=== PATIENT | female | born 1975 | race Caucasian/White ===

== ENCOUNTER 2017-11-30 12:41 | Emergency (ER) | payer MEDICAID ==
[2017-11-30 12:42] VITALS: BMI 23.8
[2017-11-30 12:55] VITALS: RESP 18; TEMP 99.2; O2SAT 99
--- NOTE | 2017-11-30 13:14 | ED PDOC ---
Arrival/HPI - General Chief Complaint: Back Pain Time Seen by Provider: 11/30/17 12:46 Historian: Patient, Spouse EM Caveat: Language Barrier (Thai speaking only) - History of Present Illness Narrative History of Present Illness (Text): 11/30/17 13:08 Pt is a 42 yr old female with PMH of nephrolithiasis who presents to the ED for sudden sharp flank pain on the left side this morning. Pt states she was walking upstairs when she felt the pain refer to the LLQ area. States pain worse on ffoward flexion of spine and better on extension and rest. Denies dysuria, hematuria, fever, chills, trauma, nausea, vomiting, or diarrhea. Spouse at bedside helped to translate to American and explained that she had a stone in the past that required lithotripsy. Currently on her menstrual cycle. Time/Duration: Prior to Arrival Symptom Onset: Sudden Symptom Course: Intermittent Quality: Aching, Pressure Severity Level: 6 Activities at Onset: Rest, Light Context: Home Past Medical History - Provider Review Nursing Documentation Reviewed: Yes - Travel History Have you recently traveled outside [place] w/in the past 3 mons?: No - Infectious Disease Hx of Infectious Diseases: None - Tetanus Immunization Tetanus Immunization: Unknown - Reproductive Menopause: No - Cardiac Hx Hypertension: Yes - Pulmonary Hx Respiratory Disorders: No - Neurological Hx Neurological Disorder: No - HEENT Hx HEENT Disorder: No - Renal Hx Renal Disorder: No - Endocrine/Metabolic Hx Endocrine Disorders: No - Hematological/Oncological Hx Blood Disorders: No - Integumentary Hx Dermatological Disorder: No - Musculoskeletal/Rheumatological Hx Musculoskeletal Disorders: No - Gastrointestinal Hx Gastrointestinal Disorders: No - Genitourinary/Gynecological Hx Genitourinary Disorders: No - Psychiatric Hx Psychophysiologic Disorder: No Hx Substance Use: No - Anesthesia Hx Anesthesia: No Hx Anesthesia Reactions: No Hx Malignant Hyperthermia: No Family/Social History - Physician Review Nursing Documentation Reviewed: Yes Family/Social History: Unknown Family HX Smoking Status: Current Some Days Smoker Hx Alcohol Use: Yes Hx Substance Use: No Allergies/Home Meds Allergies/Adverse Reactions: Allergies No Known Allergies Allergy (Verified 01/18/16 01:45) Home Medications: Home Meds Medication Instructions Recorded Confirmed Metoprolol Succinate [Toprol Xl] 25 mg PO DAILY 11/30/17 11/30/17 Review of Systems - Review of Systems Systems not reviewed;Unavailable: Language Barrier (kenyan) Constitutional: Normal. absent: Fevers Eyes: Normal ENT: Normal Respiratory: Normal. absent: SOB Cardiovascular: Normal. absent: Chest Pain Gastrointestinal: Normal. absent: Abdominal Pain, Stool Changes, Constipation, Diarrhea Genitourinary Female: Normal. absent: Dysuria, Frequency, Hematuria, Urine Output Changes Musculoskeletal: Normal, Back Pain (left LS and TS). absent: Neck Pain Skin: Normal Neurological: Normal Endocrine: Normal Hemo/Lymphatic: Normal Psychiatric: Normal Physical Exam Vital Signs Reviewed: Yes Vital Signs Temp Pulse Resp BP Pulse Ox 11/30/17 15:14 86 18 145/85 99 11/30/17 12:55 99.2 F 93 H 18 148/98 H 99 Temperature: Afebrile Blood Pressure: Normal Pulse: Regular Respiratory Rate: Normal Appearance: Positive for: Well-Appearing, Non-Toxic, Comfortable Pain Distress: Mild Mental Status: Positive for: Alert and Oriented X 3 - Systems Exam Head: Present: Atraumatic, Normocephalic Pupils: Present: PERRL Extroacular Muscles: Present: EOMI Conjunctiva: Present: Normal Mouth: Present: Moist Mucous Membranes Neck: Present: Normal Range of Motion Respiratory/Chest: Present: Clear to Auscultation, Good Air Exchange. No: Respiratory Distress, Accessory Muscle Use Cardiovascular: Present: Regular Rate and Rhythm, Normal S1, S2. No: Murmurs Abdomen: No: Tenderness, Distention, Peritoneal Signs Back: Present: Normal Inspection, CVA Tenderness, Paraspinal Tenderness (left lumbar and thoracic; muslces hypertonic), Pain with Leg Raise (left side ) Upper Extremity: Present: Normal Inspection, Normal ROM, NORMAL PULSES, Neurovascularly Intact, Capillary Refill < 2s. No: Cyanosis, Edema Lower Extremity: Present: Normal Inspection, NORMAL PULSES, Normal ROM, Neurovascularly Intact, Capillary Refill < 2 s. No: Edema, CALF TENDERNESS, Sebastian's Sign, Tenderness Neurological: Present: GCS=15, CN II-XII Intact, Speech Normal, Motor Func Grossly Intact, Normal Sensory Function, Gait Normal Skin: Present: Warm, Dry, Normal Color. No: Rashes Psychiatric: Present: Alert, Oriented x 3, Normal Insight, Normal Concentration Medical Decision Making ED Course and Treatment: 11/30/17 13:15 Impression Pt is a 42 yr old female with PMH of nephrolithiasis who presents to the ED for a sudden sharp flank pain on the left side this morning while going upstairs (+) CVA tenderness Left side, (+)SLR Lft side Plan labs, UA abd/pelvic CT assess and dispo Progress note 11/30/17 14:22 HgB 9.0, Hct 27.7 UA (+) blood-->currently on Day 1 of menses which is typically heavy 11/30/17 14:36 Pt states she is anemic and has Fe supplements but is noncompliant with them Educated pt on diet and efficacy of Fe supplements 11/30/17 15:45 No sig findings of uretal or renal stones; evidence of cholelithiasis w/o wall thickening or duct dilatation advised pt to f/u with GI specialist in 2 days or less to discuss elective sx pt has no right-sided abdominal pain or murphys sign reviewed medications and proper administration advised any sudden increase in severe pain, fever,, n/v, resturn to ED VSS on d/c - Lab Interpretations Lab Results: 11/30/17 13:50 11/30/17 13:50 Lab Results 11/30/17 13:50: Sodium 140, Potassium 4.2, Chloride 105, Carbon Dioxide 25, Anion Gap 14, BUN 13, Creatinine 0.8, Est GFR ( Amer) > 60, Est GFR (Non- Af Amer) > 60, Random Glucose 94, Calcium 8.8, Total Bilirubin 0.3, AST 21, ALT 30, Alkaline Phosphatase 60, Total Protein 7.5, Albumin 3.8, Globulin 3.7, Albumin/Globulin Ratio 1.0 L 11/30/17 13:50: WBC 4.8 D, RBC 4.31, Hgb 9.0 L, Hct 27.7 L, MCV 64.3 L, MCH 20.9 L, MCHC 32.5, RDW 17.8 H, Plt Count 195, MPV 9.9 11/30/17 13:00: Urine Color Yellow, Urine Appearance Clear, Urine pH 6.0, Ur Specific Wray >= 1.030, Urine Protein Negative, Urine Glucose (UA) Negative, Urine Ketones Negative, Urine Blood Large H, Urine Nitrate Negative, Urine Bilirubin Negative, Urine Urobilinogen 0.2, Ur Leukocyte Esterase Negative, Urine RBC 1 - 3, Urine WBC Negative, Ur Epithelial Cells None, Urine Bacteria None I have reviewed the lab results: Yes - RAD Interpretation Radiology Orders: 11/30/17 13:21 ABDOMEN COMPLETE [US] Stat Disposition/Present on Arrival - Present on Arrival Any Indicators Present on Arrival: Yes History of DVT/PE: No History of Uncontrolled Diabetes: No Urinary Catheter: No History of Decub. Ulcer: No History Surgical Site Infection Following: None - Disposition Have Diagnosis and Disposition been Completed?: Yes Diagnosis: Lumbago, Cholelithiasis, Chronic GERD, Muscle strain Disposition: HOME/ ROUTINE Disposition Time: 15:47 Patient Plan: Discharge Condition: GOOD Discharge Instructions (ExitCare): Low Back Pain in Adults, Acid Reflux ( Gastroesophageal Reflux Disease), Adult (DC), Gallstones (DC) Print Language: SERBIAN Additional Instructions: KEN HASSAN, thank you for letting us take care of you today. Your provider was Golden Rios MD and LV Arguello and you were treated for LOWER BACK PAIN and MUSCLE SPASM. The emergency medical care you received today was directed at your acute symptoms. If you were prescribed any medication, please fill it and take as directed. It may take several days for your symptoms to resolve. Return to the Emergency Department if your symptoms worsen, do not improve, or if you have any other problems. THE ULTRASOUND EXAM YOU HAD REVEALED GALL BLADDER STONES PLEASE SEE THE FAMILY PARTNER WE HAVE REFERRED YOU TO FOR FURTHER EVALUATION. REMEMBER TO TAKE OMEPRAZOLE ON AN EMPTY STOMACH 45 MINUTES BEFORE EATING BREAKFAST; TAKE TYLENOL EVERY 6 HOURS FOR PAIN RELIEF. Please contact your doctor or call one of the physicians/clinics you have been referred to that are listed on the Patient Visit Information form that is included in your discharge packet. Bring any paperwork you were given at discharge with you along with any medications you are taking to your follow up visit. Our treatment cannot replace ongoing medical care by a primary care provider outside of the emergency department. Thank you for allowing the [facility] team to be part of your care today. If you had an X-Ray or CT scan: A Radiologist will review the ED reading if any change in treatment is needed we will contact you. If you had a blood, urine, or wound culture: It will take several days for the results, if any change in treatment is needed we will contact you. I Prescriptions: Acetaminophen [Tylenol 8 Hour] 650 mg PO Q6 #20 tablet.er Methocarbamol [Robaxin] 500 mg PO Q8 5 Days #15 tab Omeprazole 20 mg PO DAILY 10 Days #10 capsule.dr Referrals: Isidro Carlisle MD [Medical Doctor] - Follow up with primary Forms: [employer] (American), WORK NOTE
[2017-11-30 13:41] LABS: URINE BILIRUBIN NEGATIVE (NEGATIVE); URINE BLOOD LARGE (NEGATIVE); URINE GLUCOSE (UA) NEGATIVE (NEGATIVE); URINE LEUKOCYTE ESTERASE NEGATIVE Leu/uL (NEGATIVE); URINE PROTEIN NEGATIVE mg/dL (<30 mg/dL); URINE UROBILINOGEN 0.2 E.U./dL (<1 E.U./dL)
[2017-11-30 13:42] LABS: URINE APPEARANCE CLEAR (CLEAR); URINE COLOR YELLOW (YELLOW)
[2017-11-30 13:54] LABS: URINE WBC NEGATIVE /hpf (0-6)
[2017-11-30 14:05] LABS: MEAN CELL VOLUME 64.3 fl (80.0-105.0); MEAN CORPUSCULAR HEMOGLOBIN 20.9 pg (25.0-35.0); MEAN CORPUSCULAR HGB CONC 32.5 g/dl (31.0-37.0); MEAN PLATELET VOLUME 9.9 fl (7.0-11.0); RBC 4.31 10^6/uL (3.5-6.1); RED CELL DISTRIBUTION WIDTH 17.8 % (11.5-14.5); WHITE BLOOD COUNT 4.8 10^3/ul (4.5-11.0)
[2017-11-30 14:33] LABS: ALBUMIN 3.8 g/dL (3.0-4.8); ALT/SGPT 30 U/L (7-56); AST/SGOT 21 U/L (14-36); BLOOD UREA NITROGEN 13 mg/dL (7-21); CALCIUM 8.8 mg/dL (8.4-10.5); GFR AFRICAN-AMERICAN > 60; GFR NON-AFRICAN AMERICAN > 60
[2017-11-30 15:15] VITALS: BP 145/85; PULSE 86
--- NOTE | 2017-11-30 15:27 | US ---
HISTORY: h/o renal stones she COMPARISON: None. TECHNIQUE: Sonographic evaluation of the abdomen. FINDINGS: LIVER: Measures 15.9 cm. Hepatopedal blood flow. Fatty infiltration manifest ultrasonographically as increased echogenicity of the liver parenchyma. No mass. No intrahepatic bile duct dilatation. GALLBLADDER: Cholelithiasis. Negative study for gallbladder wall thickening, pericholecystic fluid, sonographic Mcarthur's sign. COMMON BILE DUCT: Measures 2.9 mm. No stones. No dilatation. PANCREAS: Unremarkable as visualized. No mass. No ductal dilatation. RIGHT KIDNEY: Measures 4.2 x 11.3cm. Normal echogenicity. No calculus, mass, or hydronephrosis. LEFT KIDNEY: Measures 4.9 x 9.8cm. Normal echogenicity. No calculus, mass, or hydronephrosis. SPLEEN: Normal in size and contour. No mass. AORTA: No aneurysmal dilatation. IVC: Unremarkable. OTHER FINDINGS: None. IMPRESSION: No acute findings related to/accounting for the clinical presentation. Specifically, no renal abnormalities identified. Cholelithiasis. No sonographic evidence of acute cholecystitis.
== END 2017-11-30 16:06 | disposition home or self-care (01) ==
LOC: ED 12:41
DX: M54.5 Low back pain (principal); K80.20 Calculus of gallbladder without cholecystitis without obstruction; K21.9 Gastro-esophageal reflux disease without esophagitis; T14.8XXA Other injury of unspecified body region, initial encounter; X58.XXXA Exposure to other specified factors, initial encounter; Y93.01 Activity, walking, marching and hiking; I10 Essential (primary) hypertension